=== PATIENT | female | born 1990 | race Two or more races ===

== ENCOUNTER → 2016-10-08 | Outpatient (CLI) | payer OTHER ==
[~2016-10-08] MED LIST: ACETAZOLAMIDE250 MG PO; BUSPAR30 MG PO; DEPO-TESTO100 MG/1 M IM; DESYREL50 MG DOB; FLONASE ALLERG9.9 ML INH; METFORMIN HCL500 M4 PO; METHYLPREDNISOLO PO; MOBIC PO; NAPROXEN500 M1 PO; PHENTERMINE H37.5 M1 PO; PROAIR HFA8.5 GM INH; TYSABRI IV; VITAMIN D250000 UNIT PO; ZANAFLEX6 MG PO; ZYRTEC PO
--- NOTE | ~2016-10-08 | MR17 ---
[facility] A Service of [facility] RADIOLOGY TEXT RESULTS PATIENT: DIVYA HERNANDEZ LOCATION: [facility] : [birth year] UNIT #: [id number] AGE: [address]: Rey Poe II, MD SEX: F ORDER DR: [id number] [place] [id number] O MR#: [id number] Acc #: [id number] NAME: DIVYA HERNANDEZ : 1990 SEX: F STUDY DATE/TIME: 10/08/2016 8:44 UNIT: [facility] ROOM: STUDY DESCRIPTION: MR Brain WWo Contrast Attending Physician: Rey Poe II., M.D. Referring Physician: Rey Poe II., M.D. Ordering Physician: Rey Poe II., M.D. Primary Care Physician: Robert Ward M.D. MRI CENTER REPORT This report is preliminary unless electronic signature is present. EXAM Brain MRI with and without contrast. HISTORY Multiple sclerosis. Balance and gait disturbance worsening over the past 11 months since the previous study. TECHNIQUE Multiplanar imaging of the brain was performed with and without contrast. 20 mL of MultiHance was used. COMPARISON STUDY From 11/08/2015. FINDINGS On the axial FLAIR weighted images, there is a subtle increase in FLAIR signal in the periventricular plaques bilaterally. This is not confirmed on the sagittal series, however, and this could simply represent partial volume artifact. Additionally, in the posterior fossa, there is extensive plaque seen in the heidi, medulla, and cerebellar peduncles, as well as in the cerebellar hemispheres. There is slightly more signal seen around the fourth ventricle, both on the right and left sides on the axial images, but again, this is not confirmed on the sagittal images and is probably artifactual. There are 2 definite new plaques since the previous examination, both of which enhance with contrast. One is in the midportion the corpus callosum and the other is in the left frontal white matter. There is no evidence of hemorrhage, edema, or mass effect. Extraaxial structures are unremarkable. IMPRESSION 1. There are 2 new enhancing plaques since the previous examination, 1 in the midportion of the corpus callosum and the other in the left frontal white matter. [facility]. [facility] A Service of [facility] RADIOLOGY TEXT RESULTS PATIENT: DIVYA HERNANDEZ LOCATION: [facility] : [birth year] UNIT #: [id number] AGE: [address]: Rey Poe II, MD SEX: F ORDER DR: 2. There is extensive chronic demyelinating disease, most of which is unchanged. 3. On the axial images, there is a suggestion of some increased signal in plaque noted in the periventricular deep white matter bilaterally and around the fourth ventricle but this is not confirmed on the sagittal images and likely represents partial volume artifact. Dictated by... Matt Logan M.D. THIS IS AN ELECTRONICALLY VERIFIED REPORT Matt Logan M.D. at 10/09/2016 3:52 PM GENET/nathaniel TD: 10/09/2016 09:56 JOB #: [id number] MRI CENTER REPORT Page 1 of 1
--- NOTE | ~2016-10-08 | MR31 ---
[facility] A Service of [facility] & [facility] RADIOLOGY TEXT RESULTS PATIENT: DIVYA HERNANDEZ LOCATION: [facility] : 86 UNIT #: [id number] AGE: [address]: Rey Poe II, MD SEX: F ORDER DR: [id number] [place] [id number] O MR#: [id number] Acc #: [id number] NAME: DIVYA HERNANDEZ : 1990 SEX: F STUDY DATE/TIME: 10/08/2016 9:13 UNIT: [facility] ROOM: STUDY DESCRIPTION: MR Cervical WWo Contrast Attending Physician: Rey Poe II., M.D. Referring Physician: Rey Poe II., M.D. Ordering Physician: Rey Poe II., M.D. Primary Care Physician: Robert Ward M.D. MRI CENTER REPORT This report is preliminary unless electronic signature is present. EXAM Cervical MRI with and without contrast. HISTORY Chronic multiple sclerosis. Worsening of gait disturbance and balance since the previous scan 11 months ago. Evaluate for progression of demyelinating disease. TECHNIQUE Multiplanar imaging of the cervical spine was performed with and without contrast. 20 mL of MultiHance was used. COMPARISON Scan from 11/08/15. FINDINGS Alignment is satisfactory. Mild degenerative changes are seen throughout the cervical spine in the discs. There is a small right-sided uncovertebral joint osteophyte at C3-4 that is unchanged. There are small bilateral uncovertebral joint osteophytes at C4-5 and there is a small right-sided uncovertebral joint osteophyte at C7-T1. These degenerative changes are stable since the previous scan. On the sagittal T2-weighted images, no signal abnormalities are seen in the cervical cord. On the axial images, there is 1 questionable focus of increased signal on the right side of the cord at C2. This is not a definite finding had a similar appearance on the previous scan. There is no evidence of abnormal enhancement of the cord on the postcontrast images. No paraspinous masses are seen. IMPRESSION Stable mild cervical degenerative disc disease. Question of a small plaque right side of the cervical cord at C2. This is not a definite finding and had a similar appearance on the previous scan. It does not STS. [facility] A Service of [facility] RADIOLOGY TEXT RESULTS PATIENT: DIVYA HERNANDEZ LOCATION: [facility] : [birth year] UNIT #: [id number] AGE: [address]: Rey Poe II, MD SEX: F ORDER DR: enhance with contrast. Dictated by... Matt Logan M.D. THIS IS AN ELECTRONICALLY VERIFIED REPORT Matt Logan M.D. at 10/09/2016 3:52 PM RLF/sayra TD: 10/09/2016 09:56 JOB #: [id number] MRI CENTER REPORT Page 1 of 1
== END | disposition home or self-care (01) ==
LOC: SMRI 10-02 14:30
DX: R26.89 Other abnormalities of gait and mobility (principal); G37.9 Demyelinating disease of central nervous system, unspecified; R90.89 Other abnormal findings on diagnostic imaging of central nervous system; M50.30 Other cervical disc degeneration, unspecified cervical region
CPT/HCPCS: 70553; 72156; A9581

== ENCOUNTER → 2016-11-18 | Outpatient (CLI) | payer OTHER ==
--- NOTE | ~2016-11-18 | XA198 ---
[facility] A Service of [facility] RADIOLOGY TEXT RESULTS PATIENT: DIVYA HERNANDEZ LOCATION: [facility] : [birth year] UNIT #: [id number] AGE: [address]: Rey Poe II, MD SEX: F ORDER DR: [id number] [place] [id number] [facility]. [place], [place] [address] [id number] O MR#: [id number] Acc #: [id number] NAME: DIVYA HERNANDEZ : 1990 SEX: F STUDY DATE/TIME: 11/18/2016 10:09 UNIT: [facility] ROOM: STUDY DESCRIPTION: XA Spinal Puncture Attending Physician: Rey Poe II., M.D. Ordering Physician: Rey Poe II., M.D. Primary Care Physician: Robert Ward M.D. MEDICAL IMAGING REPORT This report is preliminary unless electronic signature is present EXAM Lumbar puncture. HISTORY Pseudotumor, chronic headaches. TECHNIQUE Procedure was explained to the patient including risks, benefits and complications. Informed consent was obtained and a formal time-out procedure was utilized. Using sterile technique and following local anesthesia with 1% Xylocaine a 20-gauge spinal needle was placed at L2-L3 under fluoroscopic guidance. 1 spot film was obtained. Total fluoroscopy time 1 minute for a dose of 60 mGy. Opening pressure was measured at 21 cm of water. Approximately 25 mL of fluid was withdrawn and a closing pressure was 9 mL. The patient tolerated the procedure well. She will be kept on bedrest for 4 hours following the procedure with close monitoring of vital signs. IMPRESSION Successful fluoroscopically-guided lumbar puncture. Opening pressure 21 and closing pressure of 9. Dictated by... Matt Logan M.D. THIS IS AN ELECTRONICALLY VERIFIED REPORT Matt Logan M.D. at 11/19/2016 3:40 PM Tavo TD: 11/18/2016 16:20 JOB #: [id number] MEDICAL IMAGING REPORT [facility] A Service of [facility] RADIOLOGY TEXT RESULTS PATIENT: DIVYA HERNANDEZ LOCATION: [facility] #: [id number] : [birth year] UNIT #: [id number] AGE: [address]: Rey Poe II, MD SEX: F ORDER DR: Page 1 of 1 COPY
[2016-11-18 11:01] LABS: BASOPHIL% 0.2 % (0-2.5); HEMATOCRIT 46.2 % (35.0-45.0); HEMOGLOBIN 15.5 gm/dL (12.0-16.0); LYMPHOCYTE# 1.7 X10e3 (1.0-3.5); LYMPHOCYTE% 10.8 % (17.0-45.0); MEAN CELL VOLUME 82.7 FL (83-96); MEAN CORPUSCULAR HEMOGLOBIN 27.7 PG (28-34); MEAN CORPUSCULAR HGB CONC 33.5 g/dL (30-36); MEAN PLATELET VOLUME 9.7 FL (6.5-11.5); MONOCYTE# 0.4 X10e3 (0-1.0); MONOCYTE% 2.7 % (3.0-12.0); NEUTROPHIL# 13.4 X10e3 (1.5-7.1); NEUTROPHIL% 86.3 % (40-75); PLATELET COUNT 197 X10e3 (140-420); RED BLOOD COUNT 5.59 X10e (3.90-5.30); RED CELL DISTRIBUTION WIDTH 13.8 % (11.0-15.5); WHITE BLOOD COUNT 15.5 X10e3 (4.0-10.5)
[2016-11-18 11:04] LABS: DIFF IND YES
[2016-11-18 11:07] LABS: PARTIAL THROMBOPLASTIN TIME 27.3 SECONDS (23.5-31.3); PROTHROMBIN TIME (PATIENT) 10.8 SECONDS (10.0-11.7)
[2016-11-18 12:56] LABS: PLATELET ESTIMATE NORMAL (NORMAL); RBC NORMAL YES; VACUOLIZATION SL
== END | disposition home or self-care (01) ==
LOC: CIVR 10:05
PROVIDERS: Psychiatry & Neurology Neurology
DX: G93.2 Benign intracranial hypertension (principal)
CPT/HCPCS: 77003; 85025; 85610; 85730